=== PATIENT | male | born 1970 | race Two or more races ===

== ENCOUNTER 2017-04-19 16:19 | Outpatient (CLI) | payer OTHER | END 2017-04-19 16:26 | disposition home or self-care (01) | LOC: LAB 16:19 | DX: J10.89 Influenza due to other identified influenza virus with other manifestations (principal) ==

== ENCOUNTER → 2017-04-19 | Outpatient (CLI) | payer OTHER ==
[~2017-04-19] VITALS: Ht 152.4 cm; Wt 71.7 kg
[~2017-04-19] MED LIST: SYNTHROID150 MCG
== END | disposition home or self-care (01) ==
LOC: PPHC 12:48
DX: J11.1 Influenza due to unidentified influenza virus with other respiratory manifestations (principal)

== ENCOUNTER 2019-07-27 12:14 | Emergency (ER) | payer OTHER ==
[~2019-07-27] VITALS: Ht 172.7 cm; Wt 77.1 kg
[2019-07-27] MEDS ORDERED: [UNRECOGNIZED DRUG - OTHER] (12:45)
[2019-07-27] MEDS ORDERED: HYDROCORTISONE (12:45)
[2019-07-27] MEDS ORDERED: ONDANSETRON ODT4 MG PO (17:29)
[2019-07-27] MEDS ORDERED: VENTOLIN HFA18 GM IH (17:29)
[2019-07-27] MEDS ORDERED: AIRBORNE EFFER1 EACH PO (17:29)
[2019-07-27] MEDS ORDERED: MUCINEX DM ER1 EAC1 PO (17:29)
== END 2019-07-27 17:46 | disposition home or self-care (01) ==
LOC: ER 12:14
DX: B34.9 Viral infection, unspecified (principal); Z03.818 Encounter for observation for suspected exposure to other biological agents ruled out; R53.81 Other malaise; R42 Dizziness and giddiness

== ENCOUNTER 2022-08-21 11:32 | Emergency (ER) | payer OTHER ==
[~2022-08-21] VITALS: Ht 175.3 cm; Wt 72.6 kg
[~2022-08-21 11:32] MED LIST changes: +AIRBORNE EFFER1 EACH PO; +HYDROCORTISONE; +MUCINEX DM ER1 EAC1 PO; +ONDANSETRON ODT4 MG PO; +VENTOLIN HFA18 GM IH; +[UNRECOGNIZED DRUG - OTHER]
== END 2022-08-21 14:25 | disposition home or self-care (01) ==
LOC: ER 11:32
DX: S40.021A Contusion of right upper arm, initial encounter (principal); X58.XXXA Exposure to other specified factors, initial encounter; Y93.89 Activity, other specified; Y92.018 Other place in single-family (private) house as the place of occurrence of the external cause; Y99.9 Unspecified external cause status; E03.9 Hypothyroidism, unspecified

== ENCOUNTER 2024-04-17 11:16 | Outpatient (CLI) | payer OTHER | END 2024-04-17 11:30 | disposition home or self-care (01) | LOC: RAD 11:16 | PROVIDERS: ATTEND Internal Medicine Endocrinology, Diabetes & Metabolism | DX: M05.10 Rheumatoid lung disease with rheumatoid arthritis of unspecified site (principal); M25.541 Pain in joints of right hand ==